=== PATIENT | female | born 2000 ===

== ENCOUNTER 2022-06-20 21:44 | Inpatient (IN) | payer BC, MEDICAID ==
[2022-06-21] MEDS ORDERED: Nalbuphine HCl 10 MG/ 1ML Amp IVPUSH ONE (00:18)
[2022-06-21] MEDS ORDERED: Sodium Chloride 0.9% 2.5 ML Syringe FLUSH PRN (00:28)
[2022-06-21] MEDS ORDERED: Sodium Chloride 0.9% 20 ML SDV IV PRN (00:28)
[2022-06-21] MEDS ORDERED: Sodium Chloride 0.9% 10 ML Syringe FLUSH PRN (00:28)
[2022-06-21] MEDS ORDERED: Lactated Ringers 1,000 ML IV ONE (00:28)
[2022-06-21] MEDS: Ondansetron 4 MG/2 ML SDV IVPUSH PRN ×2 (04:10→20:55)
[2022-06-21] MEDS ORDERED: Water For Irrigation,Sterile 1,000 ML Container IRR PRN (08:33)
[2022-06-21] MEDS ORDERED: Tranexamic Acid 1,000 MG in Sodium Chloride 0.9% 100 ML IV PRN (08:33)
[2022-06-21] MEDS ORDERED: Misoprostol 200 MCG Tab PO PRN (08:33)
[2022-06-21] MEDS ORDERED: Misoprostol 25 MCG (1/4 of 100 MCG) Tab VAG PRN ×2 (08:33)
[2022-06-21] MEDS ORDERED: Butorphanol 1 MG/ML SDV IVPUSH PRN (08:33)
[2022-06-21] MEDS ORDERED: Terbutaline 1 MG/ML SDV SUBCUT PRN (08:33)
[2022-06-21] MEDS ORDERED: Carboprost Tromethamine 250 MCG/1 ML Amp IM PRN (08:33)
[2022-06-21] MEDS ORDERED: Lidocaine 1% 50 ML MDV INJECT PRN (08:33)
[2022-06-21] MEDS ORDERED: Methylergonovine 0.2 MG/1 ML Amp IM PRN (08:33)
[2022-06-21] MEDS ORDERED: Misoprostol 50 MCG (1/2 of 100 MCG) Tab PO ONE (08:42)
[2022-06-21] MEDS ORDERED: Oxytocin/0.9 % Sodium Chloride 30 UNIT/500 ML BAG IV SCH ×2 (08:45)
[2022-06-21] MEDS ORDERED: Misoprostol 25 MCG (1/4 of 100 MCG) Tab PO ONE (09:06)
[2022-06-21] MEDS: Lactated Ringers 1,000 ML IV SCH ×2 (09:17→15:59)
[2022-06-21] MEDS ORDERED: ePHEDrine 50 MG/ML SDV ONE (13:16)
[2022-06-21] MEDS ORDERED: Ropivacaine/PF 400 MG/200 ML PCA ONE (13:16)
[2022-06-21] MEDS ORDERED: ePHEDrine 50 MG/ML SDV IVPUSH PRN (13:39)
[2022-06-21] MEDS ORDERED: Phenylephrine HCl In 0.9% NaCl 1 MG/10 ML Vial IVPUSH SCH (13:45)
[2022-06-21] MEDS ORDERED: Ropivacaine HCl/PF 400 MG in Premix Bag 1 BAG EPIDUR SCH (13:45)
[2022-06-21] MEDS ORDERED: Lanolin 100% Cream 7 GM Tube TOP PRN (17:06)
[2022-06-21] MEDS ORDERED: Benzocaine/Menthol 20%-0.5% Spray 78 GM Cannister TOP PRN (17:06)
[2022-06-21] MEDS ORDERED: Witch Hazel Medicated Pads 40/Jar TOP PRN (17:06)
[2022-06-21] MEDS ORDERED: Acetaminophen 500 MG Tab PO PRN ×2 (17:06)
[2022-06-21] MEDS ORDERED: Docusate Sodium 100 MG Cap PO PRN (17:06)
[2022-06-21] MEDS ORDERED: Ibuprofen 400 MG Tab PO PRN (17:06)
[2022-06-21] MEDS ORDERED: Bisacodyl 10 MG Supp RECTAL PRN (17:06)
[2022-06-21] MEDS ORDERED: oxyCODONE 5 MG Tab PO PRN (17:06)
[2022-06-21] MEDS: Ibuprofen 800 MG Tab PO PRN (23:14)
[2022-06-22] MEDS: Ibuprofen 800 MG Tab PO PRN (22:53)
[2022-06-23] MEDS: Ibuprofen 800 MG Tab PO PRN (15:22)
== END 2022-06-23 19:00 | disposition home or self-care (01) | DRG 560 ==
LOC: MW.OBCHECK 21:44 → MW.OB 21:45 → MW.OBCHECK 06-21 08:32 → MW.OB 06-21 08:33 → OBSVTOIN 06-21 16:17 → MW.OB 06-21 21:23
PROVIDERS: ADMIT Obstetrics & Gynecology; ATTEND Obstetrics & Gynecology
PROC: 10E0XZZ Delivery of Products of Conception, External Approach (ICD-10-PCS; principal; 2022-06-21)
PROC: 10907ZC Drainage of Amniotic Fluid, Therapeutic from Products of Conception, Via Natural or Artificial Opening (ICD-10-PCS; 2022-06-21)
PROC: 3E0R3BZ Introduction of Anesthetic Agent into Spinal Canal, Percutaneous Approach (ICD-10-PCS; 2022-06-21)
PROC: 00HU33Z Insertion of Infusion Device into Spinal Canal, Percutaneous Approach (ICD-10-PCS; 2022-06-21)
DX: O48.0 Post-term pregnancy (principal); Z3A.40 40 weeks gestation of pregnancy; Z37.0 Single live birth; O99.334 Smoking (tobacco) complicating childbirth; F17.210 Nicotine dependence, cigarettes, uncomplicated; Z20.822 Contact with and (suspected) exposure to COVID-19
CPT/HCPCS: 01967; 36415; 51702; 59025; 59409; 85014; 85018; 85025; 86592; 86850; 86900; 86901; A9270-GY; J2300; J2405; J2590; J2795; J7120; U0002